=== PATIENT | female | born 1960 | race Caucasian/White ===

== ENCOUNTER 2016-04-30 07:11 | Outpatient (CLI) | payer OTHER, BC | END 2016-04-30 07:12 | disposition home or self-care (01) | DX: Z00.00 Encounter for general adult medical examination without abnormal findings (principal) ==

== ENCOUNTER 2016-05-28 15:30 | Outpatient (CLI) | payer OTHER, BC | END 2016-05-28 15:31 | disposition home or self-care (01) | DX: R60.9 Edema, unspecified (principal); G62.9 Polyneuropathy, unspecified ==

== ENCOUNTER 2017-05-12 17:08 | Outpatient (CLI) | payer BC | END 2017-05-12 17:09 | disposition home or self-care (01) | LOC: LAB.R 17:08 | PROVIDERS: ATTEND Family Medicine | DX: R30.0 Dysuria (principal) | CPT/HCPCS: 87086 ==

== ENCOUNTER 2019-09-17 07:00 | Outpatient (CLI) | payer BC | END 2019-09-17 23:59 | disposition home or self-care (01) | LOC: LAB 07:00 | PROVIDERS: ATTEND Family Medicine | DX: R05 Cough (principal) | CPT/HCPCS: 81599 ==

== ENCOUNTER 2019-09-17 08:00 | Outpatient (CLI) | payer BC ==
--- NOTE | 2019-09-18 03:14 | XRAY Report ---
Reason: COUGH Procedure Date: 09/17/2019 Accession Number: [id number] / [id number] Procedure: WCP - Chest 2 View X-Ray CPT Code: 90777 Final Report FULL RESULT: EXAM: CHEST RADIOGRAPHY EXAM DATE: 09/17/2019 01:49 PM. CLINICAL HISTORY: COUGH. COMPARISON: None. TECHNIQUE: 2 views. FINDINGS: Lungs/Pleura: No focal opacities evident. No pleural effusion. No pneumothorax. Normal volumes. Mediastinum: Heart and mediastinal contours are unremarkable. Other: None. IMPRESSION: Normal 2-view chest radiography. [facility]
== END 2019-09-17 23:59 | disposition home or self-care (01) ==
LOC: DI.WCP 08:00
PROVIDERS: ATTEND Family Medicine
DX: R05 Cough (principal)
CPT/HCPCS: 71046